=== PATIENT | male | born 2000 | race Caucasian/White ===

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

== ENCOUNTER 2022-09-05 18:45 | Emergency (ER) | payer MEDICAID, SELFPAY ==
[2022-09-05 18:46] VITALS: BP 143/87; PULSE 114; RESP 16; TEMP 36; O2SAT 97; BMI 23.0
--- NOTE | 2022-09-05 18:48 | RAD_ITS ---
EXAM: XR RIGHT ANKLE COMPLETE, 3 OR MORE VIEWS CLINICAL INDICATION: INJURY TECHNIQUE: Frontal, lateral and oblique views of the right ankle. This report was created using Prized report generation technology. COMPARISON: None. FINDINGS: BONES/JOINTS: Unremarkable. No acute fracture. No subluxation. Normal alignment. Preservation of the joint space. No sclerotic or destructive changes observed. SOFT TISSUES: Lateral soft tissue swelling. No radiopaque foreign body. RAD/Ankle min 3 Views IMPRESSION: Lateral soft tissue swelling. No acute osseous findings. Electronically Signed: Maco Calles MD at 19:52 EDT ,
--- NOTE | 2022-09-05 19:11 | ED.VIS.LOWEX ---
HPI History of Present Illness Chief Complaint: Lower Extremity Injury Detail of Chief Complaint: Right ankle injury Informant: patient Onset/Context/Timing Onset: Yesterday Narrative Narrative: Patient rolled his right ankle yesterday while skateboarding. He has continued pain and swelling and has not been able to bear weight. He denies any other injury. He is not taking anything at home for pain. [facility] Medical History (Updated 09/05/22 @ 19:16 by Ivanna Gibson) Bipolar disorder Medical History no medical history no medical history Home Medications cephalexin 500 mg capsule 500 mg PO BID 7 days #14 caps 11/15/21 [Rx Last Taken Unknown] naproxen 500 mg tablet (Naprosyn) 500 mg PO BID PRN pain #20 tabs 09/05/22 [Rx Last Taken Unknown] Allergy/AdvReac Type Severity Reaction Status Date / Time No Known Allergies Allergy Verified 09/05/22 18:48 Social History Smoking Status: Never smoker ROS ROS ED Constitutional Constitutional ED: Denies chills or fever(s) Eyes Eyes: Denies change in vision or discharge from eye(s) ENT ENT ED: Denies discharge from eye(s), rhinorrhea or sore throat Cardiovascular Cardiovascular: Denies chest pain or palpitations Respiratory/Chest Respiratory/Chest: Denies cough or dyspnea Gastrointestinal Gastrointestinal: Denies abdominal pain, nausea or vomiting Musculoskeletal Musculoskeletal: Reports extremity pain; Denies back pain or neck pain Integumentary Denies Abrasions or rash Neurologic Neurologic: Denies headache(s), paresthesias or weakness Allergic/Immunologic Allergic/Immunologic ED: Denies lip swelling or urticaria EXAM Physical Exam Const Vital Signs: 09/05/22 18:46 Temperature 96.8 F L Temperature Source Temporal Pulse Rate 114 H Respiratory Rate 16 Blood Pressure 143/87 H Blood Pressure Mean 105 Pulse Ox 97 Oxygen Delivery Method Room Air Positive well nourished and well developed General Appearance ED: well developed HEENT Reports normocephalic and head/scalp atraumatic Eyes PERRL and EOMs intact bilaterally Neck supple Chest Wall inspection of chest normal and palpation of chest normal Resp normal respiratory effort and clear to auscultation bilaterally Cardio regular rate and regular rhythm GI Palpation: soft Extremity Extremity Narrative: Edema noted to the right ankle with tenderness to the lateral malleolus greater than medial. No tenderness over the foot itself. No tenderness of the calcaneus. No tenderness at the knee or proximal fibula. Strong distal pulses are noted with good sensation. Neuro oriented x3 and no sensory deficits noted Sensorium / Orientation: alert Psych mental status grossly normal Skin no rashes or lesions noted MDM MDM MDM Narrative Medical decision making narrative: Right ankle x-rays obtained per nursing protocol. Per my interpretation no evidence of fracture. Patient is given naproxen. Air stirrup splint applied. He has his own crutches to use. He will be referred to Dr. Connell, on-call for orthopedics if not improving. Radiography Diagnostic Testing: Clinical Impression(s) from Imaging Studies Ankle X-Ray 09/05/22 18:48 IMPRESSION: Lateral soft tissue swelling. No acute osseous findings. Electronically Signed: Maco Calles MD at 19:52 EDT Reading Location ID and State: [facility] / [place] Tel , Service support , Differential Diagnosis Differential Diagnosis: Right ankle fracture Why less likely: No evidence of fracture on imaging studies Discharge Plan Triage Chief Complaint: Lower Extremity Injury ED Provider: Cony Roberts Dx/Rx/DC Orders Clinical Impression: Right ankle sprain Instructions: ED Ankle Sprain (Adult) Prescriptions: New naproxen [Naprosyn] 500 mg tablet 500 mg PO BID PRN (Reason: pain) Qty: 20 0RF No Action cephalexin 500 mg capsule 500 mg PO BID 7 Days Qty: 14 0RF Primary Care Provider: Kingston Wan Referrals: Lake Connell DO [Med Staff - Active Staff] - As Needed Kingston Wan MD [Primary Care Provider] - Disposition Disposition: Home, Self Care
[2022-09-05] MEDS: Naproxen 500 MG Tablet PO (19:26)
[2022-09-05 20:11] VITALS: BP 134/80; PULSE 79; RESP 16; O2SAT 97
== END 2022-09-05 20:39 | disposition home or self-care (01) ==
PROVIDERS: Emergency Provider Emergency Medicine; PCP Family Medicine; Visit Provider Emergency Medicine
DX: S93.401A Sprain of unspecified ligament of right ankle, initial encounter (principal); Y93.51 Activity, roller skating (inline) and skateboarding
CPT/HCPCS: 73610; 99283

== ENCOUNTER 2023-03-22 12:56 | Emergency (ER) | payer MEDICAID, SELFPAY ==
[2023-03-22 12:58] VITALS: BP 127/83; PULSE 56; RESP 22; TEMP 36.5; O2SAT 100; BMI 20.9
--- NOTE | 2023-03-22 13:03 | ED.RN ---
PT DOES NOT WANT TO FILE WORKMANS COMP
[2023-03-22] MEDS: Ondansetron 4 MG/2 ML Vial IV (13:07)
[2023-03-22] MEDS: Morphine 4 MG/ML Syringe IV ×2 (13:08→13:26)
[2023-03-22] MEDS: Diphth,Pertuss(Acell),Tet Vac 0.5 ML Vial IM (13:11)
--- NOTE | 2023-03-22 13:12 | EDS_ITS ---
HPI <BALJIT Alexander - Last Filed: 03/22/23 14:08> History of Present Illness Chief Complaint: Trauma Narrative Narrative: Patient was at work a and a piece of wood got stuck in the table saw he was using and he partially amputated his right ring finger. He has it wrapped prior to arrival and EMS administered fentanyl 100 mcg. Last tetanus is unknown. He is right-hand dominant. [facility] <BALJIT Alexander - Last Filed: 03/22/23 14:08> [facility] Medical History (Updated 03/22/23 @ 14:08 by BALJIT Alexander) Bipolar disorder Home Medications cephalexin 500 mg capsule 500 mg PO BID 7 days #14 caps 11/15/21 [Rx Last Taken Unknown] naproxen 500 mg tablet (Naprosyn) 500 mg PO BID PRN pain #20 tabs 09/05/22 [Rx Last Taken Unknown] Allergy/AdvReac Type Severity Reaction Status Date / Time No Known Allergies Allergy Verified 09/05/22 18:48 Social History Smoking Status: Never smoker ROS <BALJIT Alexander - Last Filed: 03/22/23 14:08> ROS ED ROS Narrative Neuro: Negative for sensory dysfunction. Skin: Positive for wound. Musc: Positive for right finger pain, trauma. Heme: Negative for easy bruising, bleeding, lymphadenopathy. EXAM <BALJIT Alexander - Last Filed: 03/22/23 14:08> Physical Exam Narrative Exam Narrative: CONST: Patient sitting in no acute distress. EYES: Normal inspection. NECK: Normal inspection. EXTREMITIES: Right ring finger is partially amputated between the PIP and DIP joints with distal aspect connected by a thin strand of skin, open bone exposed, slow active oozing blood. 2+ radial pulse, sensation intact in median radial and ulnar distributions. NEURO: Oriented x4. PSYCH: Normal affect. Const Vital Signs: 03/22/23 12:58 Temperature 97.7 F L Temperature Source Temporal Pulse Rate 56 L Respiratory Rate 22 H Blood Pressure 127/83 H Blood Pressure Mean 97 Pulse Ox 100 Oxygen Delivery Method Room Air <Collin Casey MD - Last Filed: 03/22/23 14:14> Physical Exam Const Vital Signs: 03/22/23 12:58 Temperature 97.7 F L Temperature Source Temporal Pulse Rate 56 L Respiratory Rate 22 H Blood Pressure 127/83 H Blood Pressure Mean 97 Pulse Ox 100 Oxygen Delivery Method Room Air [facility] <BALJIT Alexander - Last Filed: 03/22/23 14:08> [facility] Narrative Medical decision making narrative: History gathered from: Patient and paramedics Patient has atraumatic amputation of his right ring finger from a table saw. It was amputated between the DIP and PIP joints with the distal aspect attached by a female piece of skin. Visible obvious bone. Neurovascularly intact. IV Ancef 2 g was started, tetanus updated, and analgesia ordered. X-ray shows amputation at the base of the middle phalanx of the fourth digit. I consulted [facility] telemetry hand and spoke with Dr. Aissatou Funez who recommended Xeroform and a soft bandage and transfer. Patient will remain n.p.o. in anticipation of surgery. I discussed that the amputated digit is likely not viable but they will further evaluate at [facility]. Patient transferred by EMS. Radiography Diagnostic Testing: Clinical Impression(s) from Imaging Studies Hand X-Ray 03/22/23 13:37 IMPRESSION: Amputation at the base of the middle phalanx of the fourth digit with laceration and soft tissue swelling. There is also evidence of laceration at the tip of the distal phalanx of the fourth digit with fracture of the tuft. Electronically Signed: Anupam Antonio MD at 13:59 EDT , <Collin Casey MD - Last Filed: 03/22/23 14:14> [facility] Narrative Medical decision making narrative: History gathered from: Patient and paramedics Patient has atraumatic amputation of his right ring finger from a table saw. It was amputated between the DIP and PIP joints with the distal aspect attached by a female piece of skin. Visible obvious bone. Neurovascularly intact. IV Ancef 2 g was started, tetanus updated, and analgesia ordered. X-ray shows amputation at the base of the middle phalanx of the fourth digit. I consulted [facility] telemetry hand and spoke with Dr. Aissatou Funez who recommended Xeroform and a soft bandage and transfer. Patient will remain n.p.o. in anticipation of surgery. I discussed that the amputated digit is likely not viable but they will further evaluate at [facility]. Patient transferred by EMS. Dr. Casey: I have personally performed a face to face assessment of the patient and have reviewed the GINA Note. I performed a substantive portion of the visit including all aspects of the following. My ravi findings include: History is almost completed fourth finger amputation of right hand from a table saw Exam is afebrile. Vital signs noted. GCS 15. Amputation of right fourth digit just distal to PIP, held on by skin only. Medical Decision Making: Analgesia. Ancef. Tetanus immunization. Check x-ray. X-rays interpreted by myself independently shows amputation of the fourth digit just distal to the PIP joint. Emergent [facility] hand consultation. Patient will be transferred for orthopedic hand evaluation and treatment. Patient is in stable condition. Other additions or changes: [None] History & Record Review Additional record(s) reviewed:: Prior ED visit Radiography Diagnostic Testing: Clinical Impression(s) from Imaging Studies Hand X-Ray 03/22/23 13:37 IMPRESSION: Amputation at the base of the middle phalanx of the fourth digit with laceration and soft tissue swelling. There is also evidence of laceration at the tip of the distal phalanx of the fourth digit with fracture of the tuft. Electronically Signed: Anupam Antonio MD at 13:59 EDT , Discharge Plan Triage Chief Complaint: Trauma Other Complaint: Laceration ED Midlevel Provider: Sharon Connors ED Provider: Collin Casey Dx/Rx/DC Orders Clinical Impression: Amputation of right ring finger Prescriptions: No Action cephalexin 500 mg capsule 500 mg PO BID 7 Days Qty: 14 0RF naproxen [Naprosyn] 500 mg tablet 500 mg PO BID PRN (Reason: pain) Qty: 20 0RF Primary Care Provider: Kingston Wan Referrals: Kingston Wan MD [Primary Care Provider] -
[2023-03-22] MEDS: 0.9% Normal Saline (1000mL) 1,000 ML 999 ML IV (13:13)
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
--- NOTE | 2023-03-22 13:37 | RAD_ITS ---
STUDY: X-RAY - RIGHT HAND REASON FOR EXAM: Male, 22 years old. Finger injury -- -- AMPUTATION 4TH FINGER TECHNIQUE: 3 view(s) of the hand. COMPARISON: None. FINDINGS: Normal radiocarpal articulation. Normal distal radioulnar joint. Normal visualized carpal bones. Normal carpal articulations Normal carpometacarpal articulation of the thumb. Normal second through fifth carpometacarpal joints. Normal metacarpi. Normal metacarpophalangeal joint of the thumb. Normal interphalangeal joint of the thumb. Normal proximal and distal phalanges of the thumb. Normal metacarpophalangeal joints of the second through fifth fingers. Amputation at the base of the middle phalanx of the fourth digit with ventral and ulnar dislocation. Avulsion fracture with overlying laceration overlying the tuft of the distal phalanx of the fourth digit. Soft tissue swelling and laceration overlying the fourth digit. RAD/Hand 2 Views IMPRESSION: Amputation at the base of the middle phalanx of the fourth digit with laceration and soft tissue swelling. There is also evidence of laceration at the tip of the distal phalanx of the fourth digit with fracture of the tuft. Electronically Signed: Anupam Antonio MD at 13:59 EDT ,
[2023-03-22] MEDS: Cefazolin 2 GM in 0.9% Normal Saline (100mL Bag) 100 ML IV (13:49)
--- NOTE | 2023-03-22 13:52 | NURSING ---
CALLED [facility], ETA IS 30 TO 60 MIN
[2023-03-22 13:56] VITALS: BP 125/77; PULSE 62; RESP 16; TEMP 37; O2SAT 99
[2023-03-22 14:00] VITALS: BP 110/69; PULSE 64; RESP 14; TEMP 37; O2SAT 100
--- NOTE | 2023-03-22 14:44 | NURSING ---
03/22/23@1300- Pt refusing to file workers comp claim for table saw accident that occurred at work. Pt right ring finger is partially amputated.
[2023-03-22 14:46] VITALS: BP 125/77; PULSE 62; RESP 16; TEMP 37.1; O2SAT 100
== END 2023-03-22 14:51 | disposition short-term general hospital (02) ==
PROVIDERS: Emergency Provider Emergency Medicine; PCP Family Medicine; Visit Provider Emergency Medicine
DX: S68.114A Complete traumatic metacarpophalangeal amputation of right ring finger, initial encounter (principal); W31.2XXA Contact with powered woodworking and forming machines, initial encounter; Y99.0 Civilian activity done for income or pay
CPT/HCPCS: 73120; 96365; 96375; 96376; 99285; A4216; J2405

== ENCOUNTER 2023-10-24 16:20 | Emergency (ER) | payer OTHER, SELFPAY ==
[2023-10-24 16:21] VITALS: BP 126/77; PULSE 89; RESP 22; TEMP 35.5; O2SAT 99; BMI 19.3
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
[2023-10-24] MEDS: HYDROcodone Bitartrate/Apap 5/325 Tablet PO (17:24)
[2023-10-24 17:43] VITALS: BP 108/78; PULSE 81; RESP 16; TEMP 36.6; O2SAT 97
== END 2023-10-24 17:44 | disposition home or self-care (01) ==
PROVIDERS: Emergency Provider Emergency Medicine; PCP Family Medicine; Visit Provider Emergency Medicine
DX: T23.161A Burn of first degree of back of right hand, initial encounter (principal); F31.9 Bipolar disorder, unspecified; T23.162A Burn of first degree of back of left hand, initial encounter; T22.111A Burn of first degree of right forearm, initial encounter; T22.112A Burn of first degree of left forearm, initial encounter; X58.XXXA Exposure to other specified factors, initial encounter
CPT/HCPCS: 99282

== ENCOUNTER 2023-12-17 11:30 | Emergency (ER) | payer SELFPAY ==
[2023-12-17 11:31] VITALS: BP 136/85; PULSE 103; RESP 18; TEMP 36.3; O2SAT 97; BMI 20.8
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
[2023-12-17 12:10] LABS: Absolute Lymphocyte Count 1.86 X10^3/uL (0.83-4.51); Absolute Neutrophil Count 10.6 X10^3/uL (2.0-7.7); Basophil# 0.07 X10^3/uL; Basophil% 0.5 % (0-1); Eosinophil# 0.09 X10^3/uL; Eosinophils% 0.7 % (0-5); Hematocrit 41.9 % (40-54); Hemoglobin 14.6 g/dL (13.0-16.5); Lymphocyte # 1.86 X10^3/ul (0.83-4.51); Lymphocyte % 13.6 % (19-41); Mean Corp Hgb Conc 34.8 g/dL (32-36); Mean Corpuscular Hgb 30.9 pg (27.0-32.0); Mean Corpuscular Volume 88.6 fL (80-94); Mean Platelet Vol. 10.6 fl (6.2-12.0); Monocyte% 7.3 % (0-10); NRBC Flagged by Analyzer 0 % (0-5); Neutrophil % 77.5 % (47-70); Platelet Count 172 K/mm3 (150-450); RBC Distribution Width CV 12.1 % (11.6-14.6); RBC Distribution Width SD 39.5 fl (35.1-43.9); Red Blood Count 4.73 M/mm3 (4.6-6.2); White Blood Count 13.7 K/mm3 (4.4-11.0)
[2023-12-17 12:18] LABS: International Normalized Ratio 1.3; Prothrombin Time (Protime)PT. 15.8 SECONDS (11.7-14.9)
[2023-12-17 12:19] LABS: Partial Thromboplast Time 26.7 Seconds (24.1-36.2)
[2023-12-17 12:30] VITALS: BP 118/86; PULSE 76; RESP 16; O2SAT 98
[2023-12-17 12:32] LABS: AST(SGOT) 19 U/L (15-37); Alanine Aminotransfer ALT/SGPT 16 U/L (16-61); Albumin, Serum 4.1 g/dL (3.2-5.0); Alkaline Phosphatase 89 U/L (45-117); Anion Gap 8 (5-15); BUN 13 mg/dL (7-18); BUN/Creat Ratio 13.6 RATIO (10-20); Bilirubin, Direct 0.22 mg/dL (0.00-0.30); Calcium,Total 8.9 mg/dL (8.5-10.1); Chloride 105 mmol/L (98-107); Creatinine, Serum 0.96 mg/dL (0.70-1.30); EST Glomerular Filtration Rate 105 mL/min (>60); Est Glom Filt Rate - Afr Amer 127 mL/min (>60); Estimated Creatinine Clearance 123.44 ml/min; Globulin 3.4 g/dL (2.2-4.2); Glucose 115 mg/dL (74-106); Lipase 18 U/L (13-75); Potassium 3.9 mmol/L (3.5-5.1); Protein, Total 7.5 g/dL (6.4-8.2); Sodium Level 137 mmol/L (136-145)
[2023-12-17] MEDS: 0.9% Normal Saline (1000mL) 1,000 ML 150 ML IV (12:35)
[2023-12-17 13:00] VITALS: BP 124/73; PULSE 78; RESP 15; O2SAT 97
[2023-12-17 13:23] VITALS: BP 124/73; PULSE 78; RESP 15; TEMP 36.4; O2SAT 97
== END 2023-12-17 13:24 | disposition home or self-care (01) ==
PROVIDERS: Emergency Provider Emergency Medicine; Visit Provider Emergency Medicine
DX: S20.20XA Contusion of thorax, unspecified, initial encounter (principal); F31.9 Bipolar disorder, unspecified; S60.511A Abrasion of right hand, initial encounter; V89.2XXA Person injured in unspecified motor-vehicle accident, traffic, initial encounter; Z23 Encounter for immunization
CPT/HCPCS: 70450; 71260; 72125; 74177; 80048; 80076; 83690; 85025; 85610; 85730; 90471; 93005; 99285; Q9967; A4216

== ENCOUNTER 2024-07-26 10:40 | Emergency (ER) | payer BC, SELFPAY ==
[2024-07-26 10:41] VITALS: BP 132/86; PULSE 81; RESP 16; TEMP 36.7; O2SAT 100; BMI 22.8
--- NOTE | 2024-07-26 11:09 | EX.ED.VIS.UR ---
HPI HPI - URI History of Present Illness Chief Complaint: Sore Throat Informant: patient Onset/Context/Timing Onset: Weeks (2) Context: Gradual Onset Timing: Intermittent Quality: Choking Location: Throat Worsened by: - (Nothing); Not Worsened By Swallowing Relieved by: - (Nothing) Associated Symptoms Associated Symptoms: Positive for Shortness of Breath; Negative for Nasal Congestion, Headache, Sinus Pressure, Myalgias, Nausea, Vomiting, Diarrhea, Chest Pain, Nonproductive cough, Hemoptysis or Productive Cough Narrative Narrative: Patient presents with a sore throat that has been getting worse over the past 2 weeks. Patient states it is gradually getting worse. Patient states he feels like he is choking. Patient states it comes and goes. Patient states nothing makes it better and nothing makes it worse. Patient is concerned that he may be having a cancer in his throat. Patient states he has a family history of cancer. Patient uses a nicotine vape. Patient denies any fevers or chills. Patient denies any nausea or vomiting. Patient states he feels like he is short of breath at times. ROS ROS ED Constitutional Constitutional ED: Reports chills and subjective; Denies fever(s) Eyes Eyes: Denies blurry vision or change in vision ENT ENT ED: Reports sore throat; Denies rhinorrhea Cardiovascular Cardiovascular: Denies chest pain or palpitations Respiratory/Chest Respiratory/Chest: Reports dyspnea; Denies cough Gastrointestinal Gastrointestinal: Denies nausea or vomiting Genitourinary Genitourinary ED: Denies dysuria or hematuria Musculoskeletal Musculoskeletal: Reports back pain and neck pain Integumentary Denies abscess or rash Neurologic Neurologic: Denies headache(s) or weakness Allergic/Immunologic Allergic/Immunologic ED: Denies mouth swelling or urticaria PFSH PFS Medical History Bipolar disorder Home Medications ?Medication ?Instructions ?Recorded ?Last Taken ?Type NK 03/22/23 Unknown History Allergy/AdvReac Type Severity Reaction Status Date / Time No Known Allergies Allergy Verified 07/26/24 10:43 Social History household members: family housing: apartment Smoking Status: Current every day smoker tobacco type: e-cigarettes EXAM Physical Exam Const Vital Signs: 07/26/24 10:41 Temperature 98.1 F Temperature Source Temporal Pulse Rate 81 Respiratory Rate 16 Blood Pressure 132/86 H Blood Pressure Mean 101 Pulse Ox 100 Oxygen Delivery Method Room Air Positive well nourished and well developed General Appearance ED: well developed and NAD HEENT Reports moist mucous membranes Throat: posterior oropharynx normal Neck no lymphadenopathy, supple, no meningeal signs and no JVD Resp normal respiratory effort and clear to auscultation bilaterally Cardio Rate: regular rate Rhythm: regular rhythm GI non-tender and non-distended Palpation: soft Extremity normal to inspection and full ROM General Extremety ED: Negative for tenderness Neuro oriented x3, CN's II-XII intact bilaterally and no sensory deficits noted Sensorium / Orientation: alert Motor Exam: strength 5/5 throughout Psych mental status grossly normal MDM MDM MDM Narrative Medical decision making narrative: Differential diagnosis includes parapharyngeal abscess, mass, and viral pharyngitis. CT scan of soft tissue neck will be obtained to assess for parapharyngeal abscess and mass. CBC will be obtained to assess for leukocytosis and anemia. Basic metabolic profile will be obtained to assess for electrolyte abnormality and renal function. Lab Data Attestation: I reviewed the patient's lab results. Lab results narrative: CBC was reviewed and was within normal limits. Basic metabolic profile was reviewed and was within normal limits. Labs: Laboratory Results - last 24 hr 07/26/24 11:50 WBC 8.8 RBC 4.75 Hgb 14.5 Hct 42.5 MCV 89.5 MCH 30.5 MCHC 34.1 RDW Std Deviation 39.4 RDW Coeff of Chantal 12.0 Plt Count 184 MPV 10.5 Immature Gran % (Auto) 0.300 Neut % (Auto) 70.1 H Lymph % (Auto) 19.6 [place] % (Auto) 8.5 Eos % (Auto) 0.9 Baso % (Auto) 0.6 Absolute Neuts (auto) 6.2 Absolute Lymphs (auto) 1.73 Nucleated RBC % 0 Sodium 138 Potassium 4.4 Chloride Direct 101 Carbon Dioxide 28.3 Anion Gap 9 BUN 13 Creatinine 0.9 Estim Creat Clear Calc 144.11 Est GFR (MDRD) Non-Af 127 BUN/Creatinine Ratio 14.9 Glucose 101 H Calcium 9.5 Radiography Diagnostic Testing: Clinical Impression(s) from Imaging Studies Soft Tissue Neck CT 07/26/24 12:05 IMPRESSION: One or more dose reduction techniques were used (e.g., Automated exposure control, adjustment of the mA and/or kV according to patient size, use of iterative reconstruction technique). Reading Location: [id number] CT scan of the soft tissue neck was obtained. There is no evidence of parapharyngeal mass or abscess. Airway is patent. This was interpreted by the radiologist and was also independently reviewed by myself. Treatment and Re-Evaluation Narrative: Nicotine cessation was discussed. Patient was advised of his findings. Patient was feeling better on reevaluation. Patient was instructed to drink plenty of fluids. Patient was instructed to follow-up with a primary care physician in 5 to 7 days. Patient understood and was agreeable with plan. All questions were answered. Discharge Plan Triage Chief Complaint: Sore Throat ED Provider: Carlos Skinner Dx/Rx/DC Orders Clinical Impression: Odynophagia, Nicotine vapor product user, Marijuana use Instructions: ED Pain, Acute, Uncertain Cause Prescriptions: No Action NK Primary Care Provider: Care Physician,No Primary Referrals: Carlos Peterson MD [Med Staff - Director Of District Office] - 5-7 Days Care Physician,No Primary [Primary Care Provider] - Print Language: Malagasy Disposition Disposition: Home, Self Care
--- NOTE | 2024-07-26 12:05 | CT_ITS ---
PROCEDURE: SOFT TISSUE NECK WITH CONTRAST REASON FOR EXAM: Two-week history of sore throat. TECHNIQUE: CT of the soft tissues of the neck from the orbits to the upper mediastinum with intravenous contrast. CONTRAST: 100 cc of Isovue-300. COMPARISON: None. FINDINGS: Airway: Midline and patent. Pharyngeal mucosal space: Unremarkable. Hypopharynx and larynx: Unremarkable. Parapharyngeal and retropharyngeal spaces: Unremarkable. Ladle Cleaner and buccal spaces: Unremarkable. Salivary glands: Unremarkable. Lymph nodes: No cervical lymphadenopathy. Thyroid: Unremarkable. Vasculature: Carotid arteries and internal jugular veins are unremarkable. Orbits: Unremarkable at visualized levels. Paranasal sinuses and mastoids: Grossly clear at visualized levels. Lung apices: Clear. Upper mediastinum: Visualized mediastinum is unremarkable. Bones: Unremarkable. CT/Soft Tissue Neck WITH Contrast IMPRESSION: One or more dose reduction techniques were used (e.g., Automated exposure contr ol, adjustment of the mA and/or kV according to patient size, use of iterative reconstruction technique). Reading Location: [id number]
[2024-07-26 12:08] LABS: Absolute Lymphocyte Count 1.73 X10^3/uL (0.83-4.51); Absolute Neutrophil Count 6.2 X10^3/uL (2.0-7.7); Basophil# 0.05 X10^3/uL; Basophil% 0.6 % (0-1); Eosinophil# 0.08 X10^3/uL; Eosinophils% 0.9 % (0-5); Hematocrit 42.5 % (40-54); Hemoglobin 14.5 g/dL (13.0-16.5); Lymphocyte # 1.73 X10^3/ul (0.83-4.51); Lymphocyte % 19.6 % (19-41); Mean Corp Hgb Conc 34.1 g/dL (32-36); Mean Corpuscular Hgb 30.5 pg (27.0-32.0); Mean Corpuscular Volume 89.5 fL (80-94); Mean Platelet Vol. 10.5 fl (6.2-12.0); Monocyte# 0.75 X10^3/uL; Monocyte% 8.5 % (0-10); NRBC Flagged by Analyzer 0 % (0-5); Neutrophil # 6.17 X10^3/uL (2.7-7.7); Neutrophil % 70.1 % (47-70); Platelet Count 184 K/mm3 (150-450); RBC Distribution Width SD 39.4 fl (35.1-43.9); Red Blood Count 4.75 M/mm3 (4.6-6.2); White Blood Count 8.8 K/mm3 (4.4-11.0)
[2024-07-26 12:46] LABS: Anion Gap 9 (5-15); BUN 13 mg/dL (4-19); BUN/Creat Ratio 14.9 RATIO (10-20); Calcium 9.5 mg/dL (7.6-11.0); Carbon Dioxide 28.3 mmol/L (22.0-29.0); Chloride 101 mmol/L (96-108); Creatinine, Serum 0.9 mg/dL (0.8-1.3); EST Glomerular Filtration Rate 127 (>60); Estimated Creatinine Clearance 144.11 ml/min; Glucose 101 mg/dL (70-99); Potassium 4.4 mmol/L (3.3-5.1); Sodium Level 138 mmol/L (133-145)
--- NOTE | 2024-07-26 14:01 | CM.ED ---
Social Work Reason for visit: No PCP Patient verified he does not currently have a PCP. [facility] provider list given. No further needs identified. Elizabeth Small, CHAIN DYER, CONSTRUCTION PROJECT COORDINATOR
== END 2024-07-26 13:45 | disposition home or self-care (01) ==
PROVIDERS: Emergency Provider Emergency Medicine; Visit Provider Emergency Medicine
DX: J02.9 Acute pharyngitis, unspecified (principal); R13.10 Dysphagia, unspecified; F12.90 Cannabis use, unspecified, uncomplicated; F17.290 Nicotine dependence, other tobacco product, uncomplicated
CPT/HCPCS: 70491; 80048; 85025; 99283; Q9967; J2354